=== PATIENT | female | born 1980 | race Caucasian/White ===

== ENCOUNTER 2024-11-03 10:22 | Emergency (ER) | payer BC ==
[~2024-11-03] VITALS: Ht 152.4 cm; Wt 64.9 kg
[2024-11-03 10:40] VITALS: TEMP 97.6
[2024-11-03] MEDS ORDERED: predniSONE 20 MG TABLET ONE (10:58)
[2024-11-03] MEDS: predniSONE 20 MG TABLET PO ONE (11:00)
[2024-11-03] MEDS ORDERED: IPRATROPIUM NEB FS 0.5 MG/2.5 ML AMPUL.NEB ONE ×2 (11:08→11:20)
[2024-11-03] MEDS ORDERED: ALBUTEROL FS 2.5 MG/3 ML VIAL.NEB ONE ×2 (11:08→11:20)
[2024-11-03] MEDS ORDERED: PRED50TA PO (11:11)
[2024-11-03] MEDS ORDERED: ALBU8.5H8 INH (11:11)
[2024-11-03] MEDS: ALBUTEROL FS 2.5 MG/3 ML VIAL.NEB CONTNEB ONE (11:13)
[2024-11-03] MEDS: IPRATROPIUM NEB FS 0.5 MG/2.5 ML AMPUL.NEB NEB ONE (11:13)
[2024-11-03 11:14] VITALS: O2SAT 96
[2024-11-03 11:26] VITALS: O2SAT 99
[2024-11-03 11:55] VITALS: BP 110/70; O2SAT 99
== END 2024-11-03 11:56 | disposition home or self-care (01) ==
LOC: ER 10:29
DX: J45.909 Unspecified asthma, uncomplicated (principal); F17.200 Nicotine dependence, unspecified, uncomplicated; Z88.1 Allergy status to other antibiotic agents; Z88.2 Allergy status to sulfonamides
CPT/HCPCS: 99283; 94799; 94640; J7512